=== PATIENT | male | born 2000 | race Caucasian/White ===

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

== ENCOUNTER 2019-06-28 00:23 | Emergency (ER) | payer BC ==
[~2019-06-28] VITALS: Wt 61.4 kg
[~2019-06-28 00:23] MED LIST: ILOTYCIN5 MG/GM OP
[2019-06-28 00:38] VITALS: BP 135/100; PULSE 110; TEMP 98.7
== END 2019-06-28 01:50 | disposition home or self-care (01) ==
LOC: COL.ER 00:23
DX: S02.2XXA Fracture of nasal bones, initial encounter for closed fracture (principal); F90.9 Attention-deficit hyperactivity disorder, unspecified type; Y04.0XXA Assault by unarmed brawl or fight, initial encounter